=== PATIENT | female | born 1990 ===

== ENCOUNTER → 2019-10-12 | Outpatient (CLI) | payer BC ==
[2019-10-16 15:06] LABS: HPV 16 Negative (Negative); HPV 18 Negative (Negative); HPV OTHER HR TYPES Negative (Negative)
== END | disposition home or self-care (01) ==
LOC: LAB SHORT 16:23 → LAB 16:23
PROVIDERS: Advanced Practice Midwife
DX: Z01.419 Encounter for gynecological examination (general) (routine) without abnormal findings (principal)
CPT/HCPCS: 87624; G0123

== ENCOUNTER → 2020-10-14 | Outpatient (CLI) | payer BC ==
[2020-10-18 16:10] LABS: HPV 16 Negative (Negative); HPV 18 Negative (Negative); HPV OTHER HR TYPES Negative (Negative)
== END | disposition home or self-care (01) ==
LOC: LAB SHORT 17:20
PROVIDERS: Advanced Practice Midwife
DX: Z01.419 Encounter for gynecological examination (general) (routine) without abnormal findings (principal)
CPT/HCPCS: 87624; G0123

== ENCOUNTER → 2021-02-10 | Outpatient (CLI) | payer BC | LOC: LAB SHORT 12:27 | DX: R31.9 Hematuria, unspecified (principal); B95.2 Enterococcus as the cause of diseases classified elsewhere | CPT/HCPCS: 87077; 87086; 87186 ==